=== PATIENT | female | born 1985 | race Hispanic/Latino ===

== ENCOUNTER 2023-08-03 10:33 | Emergency (ER) | payer OTHER, SELFPAY ==
[2023-08-03 10:45] VITALS: BP 139/82; PULSE 82; RESP 20; TEMP 37.1; O2SAT 99
--- NOTE | 2023-08-03 10:46 | ED.EAR ---
HPI - Ear Problem General Chief complaint: Ear Stated complaint: Right Ear Pain Time Seen by Provider: 08/03/23 10:48 Source: patient, RN notes reviewed and old records reviewed Mode of arrival: ambulatory Limitations: no limitations History of Present Illness HPI Narrative: 37-year-old female who presents to [facility] with complaints of right ear pain starting on with some nasal mucous and congestion. Patient reports no known fevers but reports some chills. Patient reports that she has been taking some Ibuprofen for her discomfort. Patient report no cough or any shortness of breath reports some scratchy sore throat denies any pain with swallowing. Patient reports that she has doctors appointment on Saturday. MD Complaint: ear pain and other (scratchy sore throat) Location: right ear Duration: constant Severity: moderate Discharge from ear: Reports no Treatment prior to arrival: other (Ibuprofen) Related Data Home Medications Medication Instructions Recorded Confirmed lisinopril 10 mg tablet mg 08/03/23 Allergies Allergy/AdvReac Type Severity Reaction Status Date / Time No Known Allergies Allergy Unknown Verified 04/23/12 11:47 NKFA Allergy Unknown Uncoded 09/01/02 13:45 Review of Systems Review of Systems: CONSTITUTIONAL: Denies malaise, positive for chills, sweats, or fever. EYES: Denies visual changes, redness, or discharge. ENT: Reports rhinorrhea, congestion, no sinus pain,right otalgia and and some sore throat. CARDIOVASCULAR: Denies chest pain, palpitations, or edema. RESPIRATORY: Reports no cough.? Denies dyspnea. GASTROINTESTINAL: Denies abdominal pain, nausea, vomiting, diarrhea SKIN: Denies rash or itching. MUSCULOSKELETAL: Denies myalgia. NEUROLOGIC: Denies headache. All systems reviewed & are unremarkable except as noted in HPI and below PMFSH Past Medical History Medical History (Updated 08/04/23 @ 00:01 by Sarah Soto) Bronchitis Hypertension Surgical History Surgical History (Updated 08/03/23 @ 11:00 by Marva Randhawa NP) Previous section Family History Family History (Updated 11/05/13 @ 07:13 by DOCTOR UNKNOWN) Grandparent Family history of elevated blood lipids Diabetes mellitus Social History Social History Smoking status: Never smoker Second hand tobacco smoke exposure: No Alcohol intake: current Comments At time of signature, agree with nursing past medical, surgical, social and family history. There is no relevant family history pertinent to the presenting complaint Exam Narrative: GENERAL: Well-appearing, well-nourished, and in no acute distress. HEAD: Normocephalic EYES: PERRLA, conjunctivae clear ENT: Nares clear, turbinates edematous and erythematous, clear discharge. Mucous membranes moist. Right TM red, left TM pearly calixto with dull light reflex; some right tragal tenderness. Oropharynx erythematous without lesions. Tonsils not enlarged and without exudate, no drooling, no hoarseness, no trismus, uvula midline. Postnasal drainage NECK: Supple. No lymphadenopathy CHEST: Clear to auscultation, breath sounds equal. No wheezing, rhonchi, rales, or stridor. No respiratory distress, speaks in full sentences. No cough noted SaO2 99% on room air HEART: Regular rate and rhythm. No murmur heard. SKIN: Warm, dry, no rash. NEURO: Alert and oriented x3. PSYCH: Normal mood and affect Course Course Emergency Course: Patient is aware of diagnosis, understands and agrees to treatment plan.? Anticipatory guidance given.? Patient agrees to follow-up as directed and is aware of reasons to seek care at the emergency department. Portions of this record may have been created with voice recognition software Level of Care: Express Care Visit Vital Signs Vital signs: Vital Signs Temperature 37.1 C 08/03/23 10:45 Pulse Rate 82 08/03/23 10:45 Respiratory Rate 20 08/03/23 10:45 Blo
== END 2023-08-03 11:17 | disposition home or self-care (01) ==
PROVIDERS: Emergency Provider Registered Nurse
DX: H66.91 Otitis media, unspecified, right ear (principal); I10 Essential (primary) hypertension
CPT/HCPCS: 99213; G0463